=== PATIENT | male | born 1965 | race Caucasian/White ===

== ENCOUNTER 2019-07-21 09:51 | Outpatient (CLI) | payer OTHER | END 2019-07-21 23:59 | disposition home or self-care (01) | LOC: CFH 09:51 | PROVIDERS: ATTEND Registered Nurse Registered Nurse First Assistant | DX: M54.17 Radiculopathy, lumbosacral region (principal); M43.17 Spondylolisthesis, lumbosacral region; Z98.890 Other specified postprocedural states | CPT/HCPCS: 72131 ==